=== PATIENT | male | born 1955 | race Caucasian/White ===

== ENCOUNTER 2017-05-27 12:51 | Emergency (ER) | payer OTHER ==
--- NOTE | 2017-05-27 13:49 | EDM.PDOC ---
ED HPI GENERAL MEDICAL PROBLEM - General Chief Complaint: ENT Problem Stated Complaint: nose bleed Time Seen by Provider: 05/27/17 13:17 Source of Information: Reports: Patient, Family History Limitations: Reports: No Limitations - History of Present Illness INITIAL COMMENTS - FREE TEXT/NARRATIVE: Patient comes to ER complaining of nosebleed. Initially started around 1210. Left sided at first. Worsened and flow became heavier, bleeding noted from both nostrils and running down back of throat. Spit out large blood clot shortly after arrival to ER. Denies any trauma to nose/URI/other changes. Has history of frequent nosebleeds since having nasal turbinate surgery a few years ago. Had one very significant nose bleed approximately a year and a half ago where he ended up in hospital overnight at [facility] and almost required a blood transfusion. Reports a lot of smaller nosebleeds that usually resolve on own. Sprays nasal gel up both nostrils frequently to help keep mucus membranes moist. Bleeds are always left- sided. By time he arrived in ER, no active bleeding noted. Denies any significant history of HTN, although BP noted to be elevated upon arrival. Does take meds for prostatic enlargement and hyperlipidemia. Former smoker. Treatments BAR HOST: Reports: Other (see below) Other Treatments BAR HOST: continued nasel pressure x 1 hour - Related Data Allergies Allergy/AdvReac Type Severity Reaction Status Date / Time No Known Allergies Allergy Verified 05/27/17 13:24 Home Meds: Home Meds atorvaSTATin [Lipitor] 20 mg PO DAILY 08/03/14 [History] Lactulose 15 ml PO DAILY 03/12/15 [History] Past Medical History Other HEENT History: Severe bloody nose fall of 2014 aprox. 6 months after nasel surgery. Needed hospitalization due to bloody nose that lasted over 7 hours. Cardiovascular History: Reports: High Cholesterol Respiratory History: Reports: None Gastrointestinal History: Reports: Diverticulosis, GERD Genitourinary History: Reports: BPH Musculoskeletal History: Reports: Arthritis, Back Pain, Chronic, Neck Pain, Chronic Neurological History: Reports: None Psychiatric History: Reports: None Endocrine/Metabolic History: Reports: Obesity/BMI 30+ Hematologic History: Reports: None Immunologic History: Reports: None Dermatologic History: Reports: None - Past Surgical History Other HEENT Surgeries/Procedures: Nasal surgery in 2014. GI Surgical History: Reports: Colonoscopy Male Surgical History: Reports: TUIP Musculoskeletal Surgical History: Reports: Arthroscopic Knee Other Musculoskeletal Surgeries/Procedures:: Back surgery x 2 Social & Family History - Tobacco Use Smoking Status *Q: Former Smoker Years of Tobacco use: 30 Packs/Tins Daily: 0.2 Used Tobacco, but Quit: Yes Month Tobacco Last Used: quit 16 years ago Second Hand Smoke Exposure: No - Caffeine Use Caffeine Use: Reports: Coffee - Alcohol Use Days Per Week of Alcohol Use: 7 (No previous DWIs, problems with alcohol abuse, etc.) Number of Drinks Per Day: 1 (Usually mixed drinks) Total Drinks Per Week: 7 - Recreational Drug Use Recreational Drug Use: No Drug Use in Last 12 Months: Yes Recreational Drug Type: Reports: Vicodin (Postop however not during the last 4 days) - Living Situation & Occupation Living situation: Reports: , with Family Occupation: Employed ED ROS ENT - Review of Systems Review Of Systems: ROS reveals no pertinent complaints other than HPI. HEENT: Reports: Nosebleed. Denies: Nose Pain, Throat Pain, Throat Swelling, Vertigo Respiratory: Denies: Shortness of Breath, Wheezing, Cough, Sputum, Hemoptysis GI/Abdominal: Denies: Abdominal Pain, Hematemesis, Nausea, Vomiting Neurological: Denies: Dizziness Hematologic/Lymphatic: Denies: Anemia, Easy Bleeding, Easy Bruising ED EXAM, ENT - Physical Exam Exam: See Below Exam Limited By: No Limitations General Appearance: Alert, WD/WN, No Apparent Distress Eye Exam: Bilateral Eye: EOMI, PERRL Ears: Normal External Exam Nose: Dried Blood (near nares), Other (No active bleeding noted, however blood- smeared mucus membranes seen bilaterally. No obvious site of focal bleeding identified. ). No: Nasal Deformity, Nasal Discharge, Nasal Swelling, Nasal Tenderness, Septal Deformity, Septal Hematoma, Active Bleeding Mouth/Throat: Normal Gums, Normal Lips, Normal Teeth, Other (No active bleeding in pharyngeal area noted. ) Head: Atraumatic, Normocephalic Neck: Normal Inspection, Supple Respiratory/Chest: No Respiratory Distress, Lungs Clear Cardiovascular: Regular Rate, Rhythm Extremities: Normal Capillary Refill Neurological: Alert, Oriented, Normal Cognition, Normal Gait, No Motor/Sensory Deficits Psychiatric: Normal Affect, Normal Mood Skin: Warm, Dry, Intact, Normal Color Course - Vital Signs Last Recorded V/S: Last Vital Signs Temp 36.5 C 05/27/17 13:12 Pulse 101 H 05/27/17 14:00 Resp 20 05/27/17 13:12 BP 140/80 05/27/17 14:03 Pulse Ox 96 05/27/17 13:12 - Orders/Labs/Meds Labs: Laboratory Tests 05/27/17 Range/Units 13:10 WBC 7.8 (4.0-10.2) K/uL RBC 5.08 (4.33-5.41) M/uL Hgb 15.7 (13.1-16.8) g/dL Hct 44.9 (39.0-49.0) % MCV 88.4 (84.0-98.0) fL MCH 30.9 (28.2-33.3) pg MCHC 35.0 (31.7-36.0) g/dL RDW 12.9 (11.2-14.1) % Plt Count 288 (150-350) K/uL Neut % (Auto) 61.6 (45.0-80.0) % Lymph % (Auto) 24.9 (10.0-50.0) % [place] % (Auto) 10.0 (2.0-14.0) % Eos % (Auto) 2.6 (0.0-5.0) % Baso % (Auto) 0.9 (0.0-2.0) % Neut # (Auto) 4.82 (1.40-7.00) K/uL Lymph # (Auto) 1.95 (0.50-3.50) K/uL [place] # (Auto) 0.78 (0.00-1.00) K/uL Eos # (Auto) 0.20 (0.00-0.50) K/uL Baso # (Auto) 0.07 (0.00-0.20) K/uL - Re-Assessments/Exams Free Text/Narrative Re-Assessment/Exam: 05/27/17 14:24 Patient spent one hour in ER. No further active bleeding observed. Baseline HGB/ Hct ordered and were within normal limits. Platelets normal. Manual BP taken, 140/80 Discussed with patient that elevated BP can contribute to nosebleeds as well as recent cold dry air with winter weather changes. Patient to go home and rest and continue to observe for changes. He is to return to the ER if nosebleed returns. Departure - Departure Time of Disposition: 13:46 Disposition: Home, Self-Care 01 Clinical Impression: Frequent nosebleeds, Epistaxis - Discharge Information Instructions: Nosebleed Referrals: Citlalli Noel PA [Primary Care Provider] - Forms: ED Department Discharge Additional Instructions: Take it easy today as we discussed. Follow up in ER if you have recurrent bleed. Monitor your blood pressure and keep track of trends. Your systolic reading ( upper number) was high today. This may have been in part due to stress/anxiety of nosebleed and having to come to ER. However, higher blood pressures can promote nose bleeds. You may need adjustment of BP meds to help keep upper number more controlled.
[2017-05-27 14:27] VITALS: BP 140/80
== END 2017-05-27 14:05 | disposition home or self-care (01) ==
LOC: LL.ED 12:51
DX: R04.0 Epistaxis (principal); E78.00 Pure hypercholesterolemia, unspecified; Z87.891 Personal history of nicotine dependence; Z79.899 Other long term (current) drug therapy
CPT/HCPCS: 36415; 85025; 99283